=== PATIENT | male | born 1965 | race African-American/Black ===

== ENCOUNTER 2023-04-23 17:23 | Emergency (ER) | payer MEDICAID, OTHER ==
[~2023-04-23] VITALS: Ht 180.3 cm; Wt 90.0 kg
[~2023-04-23 17:23] MED LIST: TRAMADOL; UNK MEDS; VICODIN
[2023-04-23 17:30] VITALS: BP 154/96; O2SAT 98
[2023-04-23] MEDS ORDERED: METOCLOPRAMIDE HCL 10MG TABLET PO ONE (18:30)
[2023-04-23 19:21] LABS: BASOPHILS % 0.7 % (0.0-2.0); EOSINOPHILS % 0.2 % (0.0-5.0); HEMATOCRIT. 38.5 % (42.0-52.0); HEMOGLOBIN. 12.7 g/dL (14.0-18.0); LYMPHOCYTES % 34.4 % (20.0-50.0); MEAN CORPUSCULAR HEMOGLOBIN 28.5 pg (28.0-32.0); MEAN CORPUSCULAR VOLUME 86.2 fL (80.0-94.0); MEAN PLATELET VOLUME 8.3 fl (7.4-10.4); MONOCYTES % 13.3 % (2.0-8.0); NEUTROPHILS % 51.4 % (40.0-76.0); PLATELET 113 x1000/uL (130-400); RED BLOOD CELL COUNT 4.47 mill/uL (4.7-6.1); RED CELL DISTRIBUTION WIDTH 13.7 % (11.6-14.6); WHITE BLOOD COUNT 3.1 x1000/uL (4.5-11.0)
[2023-04-23 19:31] LABS: CHLORIDE 97 mEq/L (98-107); INDEX HEMOLYSI 1 (1-3); INDEX ICTERIC 1 (1-4); INDEX LIPEMIC 1 (1-3); POTASSIUM 3.7 mEq/L (3.5-5.1); SODIUM 131 mEq/L (136-145)
[2023-04-23 19:42] LABS: ALANINE AMINOTRANSFERASE 90 IU/L (13-61); ALBUMIN 3.4 g/dL (3.4-5.0); ASPARTATE AMINOTRANSFERASE 79 IU/L (15-37); BILIRUBIN TOTAL 0.5 mg/dL (0.1-1.0); CALCIUM 8.5 mg/dL (8.5-10.1); CARBON DIOXIDE 27 mEq/L (21-32); GLUCOSE 117 mg/dL (70-105); PROTEIN TOTAL 7.3 g/dL (6.0-8.3); UREA NITROGEN BLOOD 11 mg/dL (7-21)
[2023-04-23] MEDS ORDERED: METO-293 MT (20:14)
[2023-04-23] MEDS ORDERED: METOCLOPRAMIDE HCL 10MG TABLET PO NR (20:30)
[2023-04-23 20:35] VITALS: PULSE 82; RESP 18; TEMP 98.6
== END 2023-04-23 20:30 | disposition home or self-care (01) ==
LOC: ER 17:23
DX: R06.6 Hiccough (principal); I10 Essential (primary) hypertension
CPT/HCPCS: 99284; 71045; 80053; 85025; 36415; J8597